=== PATIENT | male | born 1945 | race Caucasian/White ===

== ENCOUNTER 2021-10-03 09:40 | Emergency (ER) | payer MEDICARE, SELFPAY ==
[2021-10-03 09:44] VITALS: BP 153/96; PULSE 96; RESP 18; TEMP 36.8; O2SAT 97; BMI 28.5
--- NOTE | 2021-10-03 10:13 | XR_ITS ---
WS: [id number] Left shoulder, 3 views, 10/03/2021 Clinical Data: pain Comparison: None. Findings: No fractures or dislocations are seen. The AC joint shows mild osteoarthritis. There is osteoarthriti c change with spurring of the glenoid rim and the lesser tuberosity. There is irregularity over the g reater tuberosity. Midline sternotomy sutures are seen. XR/XR shoulder LT min 2V* [id number] Impression: 1. 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 2. Mild osteoarthritis of the left AC joint.
--- NOTE | 2021-10-03 10:14 | W.ED.EXTPRO ---
HPI - Extremity Problem General: Chief complaint: Extremity Problem,Nontraumatic Stated complaint: left side pain/cannot move arm Time Seen by Provider: 10/03/21 09:51 Source: patient and family () Mode of arrival: ambulatory Limitations: no limitations History of Present Illness: Patient is a very pleasant 76-year-old male who presents to ED today along with his for complaints of left shoulder pain. Patient tells me he has chronic bilateral shoulder pains that he attributes to old age and states every once in a while they will flareup and cause him some discomfort. He states he used a garden tiller yesterday and thinks that he may have aggravated his left shoulder. He states this morning he virtually had zero movement of the left shoulder and had significant discomfort with any attempt of range of motion. He states his shoulder felt locked up . He states he did sit in a massage chair and states afterwards he did find his range of motion improved however quickly felt like the shoulder locked back up . He does not complain of any numbness, tingling, loss of sensation. He has not noticed any color/temperature changes. He does not complain of neck pain. MD Complaint: joint pain Onset (ago): hour(s) Pain Consistency: constant Location: left and upper extremity Radiation: none Relieving factors: immobilization Exacerbating factors: range of motion Associated symptoms: Reports no associated symptoms; Deny chest pain or fever(s) Review of Systems Const: Denies: fever(s) Card: Denies: chest pain Resp: Denies: dyspnea GI: Denies: abdominal pain Musc: Reports: joint pain (L shoulder) and limited range of motion (L shoulder); Denies: neck pain, back pain, extremity swelling, joint swelling, joint redness or joint warmth Neuro: Denies: headache(s), numbness in extremities, weakness in extremities or sensory changes Physical Exam Const: COMMON NORMALS: no acute distress, average body habitus, patient oriented x3, no limitations, healthy appearing, alert and well nourished GENERAL APPEARANCE: cooperative Neck/C-Spine: COMMON NORMALS: full ROM GENERAL: Yes normal visual inspection CERVICAL SPINE: Yes cervical ROM normal, No pain with cervical ROM, No Cervical spine tenderness and No Paracervical muscle tenderness Resp: COMMON NORMALS: normal respiratory effort and clear to auscultation bilaterally AUSCULTATION: clear to auscultation bilaterally Cardio: COMMON NORMALS: regular rate and regular rhythm RATE: regular rate RHYTHM: regular rhythm Extremity: COMMON NORMALS: normal to inspection, capillary refill normal, no joint enlargement and no clubbing, cyanosis or edema GENERAL: Yes normal exam except as noted LEFT UPPER EXTREMITY: Yes shoulder joint (TTP anterior shoulder joint) Left shoulder joint: Yes ROM (very limited ROM-cannot hardly move past about 10 degrees flexion/abduction) and Yes neurovascular exam (normal) Neuro: COMMON NORMALS: patient oriented x3, moves all extremities, no focal motor deficits and no sensory deficits noted SENSORIUM/ORIENTATION: Yes alert Skin: COMMON NORMALS: no rashes or lesions noted GENERAL SKIN EXAM: no rashes or lesions noted Course Vital Signs: Vital signs: Vital Signs Temperature 98.2 F 10/03/21 09:44 Pulse Rate 96 10/03/21 09:44 Respiratory Rate 18 10/03/21 10:36 Blood Pressure 153/96 10/03/21 09:44 Pulse Oximetry 97 10/03/21 09:44 MDM - Extremity (Nontraumatic) Medical Decision Making XR showing chronic osteoarthritis. Patient does feel better after IM medications here and does have improved range of motion of the shoulder. At this time I think patient would benefit from orthopedic evaluation for etiology of his acute shoulder pain. He is 76 and continues to be very physically active at home. Referral placed for this. Recommend OTC Aleve and will place him on steroids/muscle relaxers in the meantime. Recommend continuing therapeutic massage as this seemed to help. Lab Data Radiology Impressions Shoulder X-Ray 10/03/21 10:13 Impression: 1. 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 2. Mild osteoarthritis of the left AC joint. Discharge Plan Discharge Patient Disposition: Home Clinical Impression: Acute pain of left shoulder Osteoarthritis of left shoulder Qualifiers: Osteoarthritis type: unspecified Qualified Code(s): M19.012 - Primary osteoarthritis, left shoulder Condition: Stable Prescriptions: New cyclobenzaprine 10 mg tablet 10 mg PO TID Qty: 14 0RF Medrol (Vasyl) 4 mg tablets,dose pack See Rx Instructions .ROUTE .COMPLEX Qty: 21 0RF Rx Instructions: orally per package directions Discharge Orders: Discharge ED (Routine); Ordered 10/03/21 Ordered By: Rossi Lakhani Coding Level of Care Code ED Extension Course Coordinator for Chg Nicky
[2021-10-03 10:36] VITALS: RESP 18
[2021-10-03] MEDS: morphine 4 mg/mL SDV 1 mL IM (10:36)
[2021-10-03] MEDS: ketorolac 30 mg/mL INJ IM (10:36)
[2021-10-03] MEDS: dexamethasone 10 mg/mL INJ 8 MG IM (10:36)
--- NOTE | 2021-10-04 12:50 | DCPLANNER ---
Addendum entered by Lizette Carrera 10/13/21 06:31: Patient had a follow up appointment scheduled for 10.06.[address] Quiñonez at ortho - patient did attend appointment. Original Note: manager management had message to schedule a follow up appointment for patient with ortho. manager management sent patients information to the front office staff at ortho. Patients information will be printed and reviewed. Clinic will call patient with appointment information.
== END 2021-10-03 11:29 | disposition home or self-care (01) ==
PROVIDERS: Emergency Provider Physician Assistant
DX: M19.012 Primary osteoarthritis, left shoulder (principal); M79.602 Pain in left arm
CPT/HCPCS: 73030; 96372; 99283; J1100; J1885; J2270

== ENCOUNTER → 2021-10-06 08:59 | Outpatient (BNVA) | payer MEDICARE, SELFPAY | PROVIDERS: Referring Provider Physician Assistant; Visit Provider Orthopaedic Surgery | DX: M19.012 Primary osteoarthritis, left shoulder (principal) | CPT/HCPCS: 99204 ==

== ENCOUNTER 2021-12-25 13:03 | Outpatient (CLI) | payer MEDICARE, SELFPAY ==
--- NOTE | 2021-12-25 13:25 | USCV_ITS ---
Giovani Reeves Age: 76 Gender: M : 1945 Exam Date: 12/25/2021 14:12 Ordering Phys: Garrett Briceno Technologist: Chidi Shah Exam Location: [facility] – [place] Indication: MV disease hx MV commisurotomy BP: 134 / 73 HR: 85 Rhythm: Sinus Technical Quality: Good MEASUREMENTS (Male / Female) Normal Values 2D ECHO LV Diastolic Diameter PLAX 5.6 cm 4.2 - 5.9 / 3.9 - 5.3 cm LV Systolic Diameter PLAX 4.2 cm IVS Diastolic Thickness 1.1 cm 0.6 - 1.0 / 0.6 - 0.9 cm IVS Systolic Thickness 1.5 cm LVPW Diastolic Thickness 1.0 cm 0.6 - 1.0 / 0.6 - 0.9 cm LVPW Systolic Thickness 1.6 cm LVOT Diameter 2.1 cm LV Ejection Fraction 2D Teich 47.2 % LV Ejection Fraction MOD 2C 39.4 % LV Ejection Fraction 2C AL 40.6 % LA Diameter 5.5 cm IVC Diameter 2.5 cm M-MODE LV Diastolic Diameter MM 5.0 cm 4.2 - 5.9 / 3.9 - 5.3 cm LV Systolic Diameter MM 3.4 cm LV Ejection Fraction MM Teich 60.8 % IVS Diastolic Thickness MM 1.1 cm 0.6 - 1.0 / 0.6 - 0.9 cm IVS Systolic Thickness MM 2.2 cm LVPW Diastolic Thickness MM 1.1 cm 0.6 - 1.0 / 0.6 - 0.9 cm LVPW Systolic Thickness MM 1.6 cm RV Diastolic Diameter MM 3.5 cm Aortic Annulus Diameter 3.4 cm LA Ao Ratio MM 1.5 MV E Point Septal Separation 1.2 cm DOPPLER AV Peak Velocity 143.0 cm/s LVOT Peak Velocity 69.0 cm/s AV Area Cont Eq vti 1.3 cm squared AV Area Cont Eq pk 1.7 cm squared TR Peak Velocity 260.0 cm/s TR Peak Gradient 27.0 mmHg TV Peak E Velocity 111.0 cm/s Right Atrial Pressure 15.0 mmHg Pulmonary Artery Systolic Pressu 42.0 mmHg PV Peak Velocity 135.0 cm/s FINDINGS Left Ventricle Normal LV size with a slightly diminished ejection fraction 50% (visual). Mild diffuse hypokinesia of the septum. Right Ventricle Normal right ventricular size and systolic function. Right Atrium Moderately increased right atrial size. Left Atrium Moderately increased left atrial size. Mitral Valve Possible mitral annular ring. At least moderate mitral regurgitation Aortic Valve Thickened aortic valve. Tricuspid Valve Moderately severe eccentric tricuspid regurgitation, appears to be encircling the right atrium. Estimated pulmonary artery peak systolic pressure 42 mmHg Pulmonic Valve Mild pulmonary valve regurgitation. Pericardium No pericardial or pleural effusion. Aorta Normal aortic annulus size. IVC Dilated IVC with decreased respiratory variation. CONCLUSIONS Normal LV size with a slightly diminished ejection fraction 50% (visual). Mild diffuse hypokinesia of the septum. Moderate biatrial enlargement. Possible mitral annular ring. At least moderate mitral regurgitation. Thickened aortic valve. Moderately severe eccentric tricuspid regurgitation, appears to be encircling the right atrium. Estimated pulmonary artery peak systolic pressure 42 mmHg. Mild pulmonary valve regurgitation. There is no pericardial effusion. There are no intracardiac masses. No similar previous studies are available for comparison Dr Dedrick England MD FAC (Electronically Signed) Final Date: 02 January 2022 15:33 S
== END 2021-12-25 13:04 | disposition home or self-care (01) ==
PROVIDERS: PCP Family Medicine; Visit Provider Nurse Practitioner Family
DX: I08.3 Combined rheumatic disorders of mitral, aortic and tricuspid valves (principal)
CPT/HCPCS: 93306

== ENCOUNTER → 2022-01-02 13:54 | Outpatient (BNVA) | payer MEDICARE, SELFPAY | PROVIDERS: PCP Family Medicine; Visit Provider Internal Medicine Cardiovascular Disease | DX: I48.91 Unspecified atrial fibrillation (principal); I34.0 Nonrheumatic mitral (valve) insufficiency; I07.1 Rheumatic tricuspid insufficiency; E78.5 Hyperlipidemia, unspecified; I13.0 Hypertensive heart and chronic kidney disease with heart failure and stage 1 through stage 4 chronic kidney disease, or unspecified chronic kidney disease; N18.9 Chronic kidney disease, unspecified; I50.9 Heart failure, unspecified; Z79.01 Long term (current) use of anticoagulants | CPT/HCPCS: 80053; 83880; 84443; 85025; 85610; 93005; 99204; 99205 ==

== ENCOUNTER 2022-02-02 10:33 | Day surgery (SDC) | payer MEDICARE, SELFPAY ==
[2022-01-31 13:56] VITALS: BMI 24.9
[2022-02-02 11:02] VITALS: BP 153/92; PULSE 94; RESP 18; TEMP 35.8; O2SAT 98
[2022-02-02] MEDS: sodium chloride 0.9% 1,000 ML 30 ML IV ×2 (11:07→12:47)
--- NOTE | 2022-02-02 11:37 | USCV_ITS ---
Giovani Reeves Age: 76 Gender: M : 1945 Exam Date: 02/02/2022 12:10 Ordering Phys: Dedrick England MD ([email or web address]) Technologist: Chidi Shah Exam Location: [facility] – [place] Indication: murmur BP: 134 / 78 HR: 66 Rhythm: Sinus Technical Quality: Good MEASUREMENTS (Male / Female) Normal Values 2D ECHO LVOT Diameter 2.0 cm DOPPLER LVOT Peak Velocity 61.0 cm/s TR Peak Velocity 394.5 cm/s TR Peak Gradient 62.2 mmHg TR Mean Velocity 270.0 cm/s TR Mean Gradient 36.7 mmHg TR Velocity Time Integral 133.9 cm PV Peak Velocity 47.0 cm/s Medications IV propofol administered with anesthesia service Complications None Proc. Components The KITTY probe was passed into the posterior pharynx , mid- esophagus, distal esophagus, and gastric fundus. KITTY was performed at multiple levels. The patient tolerated the procedure well and there were no complications. FINDINGS Left Ventricle Normal LV size with no intracardiac masses Right Ventricle Normal RV size and ejection fraction Right Atrium Moderately dilated right atrium Left Atrium Moderately dilated left atrium LA Appendage Normal size and contractility IA Septum Interatrial septum at the origin of the foramina ovale appears to be bulging to the left side. During the saline contrast injection, few bubbles were found to be traversing the interatrial septum to the left side. Mitral Valve Moderate perivalvular leak was noted in the anterior annular region. Aortic Valve Tricuspid aortic valve with some mild to moderate calcification Tricuspid Valve Moderately severe eccentric tricuspid regurgitation by color- flow Doppler examination. Tricuspid leaflet is somewhat thickened and redundant. Pulmonic Valve No gross abnormalities noted Pericardium No pericardial effusion. Aorta Normal aortic root CONCLUSIONS 1. Moderate paravalvular leak in the anterior annular region with a moderate valvular regurgitation. 2. Moderately severe eccentric tricuspid regurgitation.. Thickened and somewhat redundant tricuspid leaflets 3 . Mild to moderate aortic valve calcification with no significant stenosis 4. Small patent foramen ovale 5. No intracardiac masses 6. Normal LV size and ejection fraction 7. Normal RV size and ejection fraction No similar previous studies are available for comparison Dr Dedrick England MD [facility] (Electronically Signed) Final Date: 06 February 2022 19:47 S
--- NOTE | 2022-02-02 11:59 | W.PM.OPSUD ---
Surgery/Procedure H&P Update DATE OF PROCEDURE: February 02, 2022 DATE H&P PERFORMED: 01/02/22 H&P UPDATE INFORMATION: I have reviewed H&P completed within last 30 days, I have examined patient prior to procedure and No changes to prior documentation PREOP DIAGNOSIS: MR/TR PRIMARY INDICATION FOR PROCEDURE: CHF/edema PLANNED PROCEDURE: Operation Date: 02/02/22 12:00 Proposed Procedures p KITTY with anesthesia 44007, I48.91(Not Applicable) - Dedrick England MD
--- NOTE | 2022-02-02 12:09 | ANES.PREANE2 ---
Pre-Anesthetic Assessment Height/Weight: Height 1.85 m Weight 85.729 kg Temp Pulse Resp BP Pulse Ox O2 Del Method 96.5 F L 94 18 153/92 98 02/02/22 11:02 02/02/22 11:02 02/02/22 11:02 02/02/22 11:02 02/02/22 11:02 02/02/22 11:02 Preop Diagnosis: MR/TR Operation Date: 02/02/22 12:00 Proposed Procedures p KITTY with anesthesia 20354, I48.91(Not Applicable) - Dedrick England MD Familial anesthetic complications: none Was Beta Lucas taken within 24 hours: Yes Was Clonidine taken within 24 hours: N/A Last intake: Intake Last Liquid Date 02/01/22 Last Liquid Time 17:00 Last Solid Date 02/01/22 Last Solid Time 17:00 Last Intake: 17:00 Social No alcohol and No tobacco Exam alert, oriented x 3, clear to auscultation bilaterally and regular rate & rhythm (murmor) Airway Submandibular: within normal limits Cervical ROM: within normal limits Mallampati: Class I Dentition: false Pulmonary None reported CV/HEM Atrial Fibrillation, Coronary Artery Disease, Hypertension, Myocardial Infarction and Murmur (Mitral valve repair/CABG 2011) None reported Hepatic None reported GI None reported Metabolic None reported Musc/skel Lower Back Pain and Osteoarthritis/DJD Neuropsych None reported Anesthetic Plan ASA status: 3 Anesthesia: MAC Medications/Allergies Home Medications Medication Instructions Recorded Confirmed Last Taken Type atorvastatin 20 mg tablet 20 mg PO DAILY 12/28/21 01/31/22 02/01/22 History chlorthalidone 25 mg tablet 25 mg PO DAILY 12/28/21 01/31/22 02/01/22 History metoprolol succinate 25 mg 25 mg PO DAILY 12/28/21 02/02/22 02/02/22 History tablet,extended release 24 hr sildenafil 50 mg tablet 50 mg PO DAILY PRN sexual activity 12/28/21 01/31/22 Unknown History apixaban 5 mg tablet (Eliquis) 5 mg PO BID #180 tabs 01/02/22 01/31/22 02/01/22 Rx magnesium L-lactate 84 mg 84 mg PO BID #180 tabs 01/02/22 01/31/22 02/01/22 Rx tablet,extended release (Magtab) Allergies Allergy/AdvReac Type Severity Reaction Status Date / Time lisinopril Allergy Intermediate ADR-Cough Verified 01/02/22 16:42 Current Medications Generic Name Dose Route Start Last Admin Trade Name Freq PRN Reason Stop Dose Admin Sodium Chloride 1,000 mls @ 30 mls/hr 02/02/22 11:00 02/02/22 11:07 Sodium Chloride 0.9% IV 02/03/22 10:59 30 mls/hr .Q24H STEFF Administration PFSH Anesthesia Medical History Mitral valve regurgitation Family History Brother Stroke Mother Dementia Son Lung disease Denies family history of Diabetes CAD (coronary artery disease) Clotting disorder Chronic kidney disease (CKD) Suicide Anesthesia complication Bleeding disorder Cancer Social History Smoking and tobacco status: never smoked Alcohol intake: never Data Anesthesia Cardiac Studies: Echocardiogram 12/25/21
[2022-02-02 12:58] VITALS: BP 106/68; PULSE 75; RESP 16; TEMP 36.1; O2SAT 94
[2022-02-02 13:09] VITALS: BP 108/74; PULSE 70; RESP 18; O2SAT 99
--- NOTE | 2022-02-02 14:11 | ANE.PACU2 ---
Inpatient post-anesthesia follow up: Airway intact: Yes Vital signs: Temperature 97.0 F Pulse Rate 70 Respiratory Rate 18 Blood Pressure 108/74 Pulse Oximetry 99 Oxygen Delivery Me thod Room Air Oxygen Flow Rate Fraction of Inspir ed Oxygen Hydration adequate: Yes Nausea and vomiting: No Pain level: 1 Mental status: Baseline
== END 2022-02-02 13:28 | disposition home or self-care (01) ==
PROVIDERS: PCP Family Medicine; Visit Provider Internal Medicine Cardiovascular Disease
PROC: (CPT 93312; principal; 2022-02-02 12:00)
DX: I48.91 Unspecified atrial fibrillation (principal); I07.1 Rheumatic tricuspid insufficiency; I70.0 Atherosclerosis of aorta; I25.10 Atherosclerotic heart disease of native coronary artery without angina pectoris; I10 Essential (primary) hypertension; I25.2 Old myocardial infarction; Z95.1 Presence of aortocoronary bypass graft; M19.90 Unspecified osteoarthritis, unspecified site
CPT/HCPCS: 93312; 93320; 93325; J2704; J7030

== ENCOUNTER → 2023-01-17 15:18 | Outpatient (BNVA) | payer MEDICARE, SELFPAY | PROVIDERS: PCP Family Medicine; Visit Provider Internal Medicine Cardiovascular Disease | DX: I48.91 Unspecified atrial fibrillation (principal); I50.9 Heart failure, unspecified; I34.0 Nonrheumatic mitral (valve) insufficiency; E78.5 Hyperlipidemia, unspecified; I07.1 Rheumatic tricuspid insufficiency; Z79.01 Long term (current) use of anticoagulants | CPT/HCPCS: 99214 ==

== ENCOUNTER → 2023-08-07 15:07 | Outpatient (BNVA) | payer MEDICARE, SELFPAY | PROVIDERS: PCP Family Medicine; Visit Provider Internal Medicine Cardiovascular Disease | DX: I48.91 Unspecified atrial fibrillation (principal); Z79.01 Long term (current) use of anticoagulants; E78.5 Hyperlipidemia, unspecified; I50.9 Heart failure, unspecified; I08.1 Rheumatic disorders of both mitral and tricuspid valves | CPT/HCPCS: 99214 ==